=== PATIENT | male | born 1985 | race Caucasian/White ===

== ENCOUNTER 2016-08-03 17:02 | Emergency (ER) | payer SELFPAY ==
[~2016-08-03] VITALS: Ht 180.3 cm; Wt 99.8 kg
[2016-08-03 18:14] VITALS: BP 135/76
[2016-08-03 18:56] LABS: Basophils # (auto) 0.1 uL; Basophils % (auto) 0.4 % (0.0-2.0); Eosinophils # (auto) 0.2 uL; Eosinophils % (auto) 1.7 % (0.0-7.0); Lymphocytes # (auto) 3.4 uL; Lymphocytes % (auto) 26.8 % (10.0-50.0); Mean Corpuscular Hgb Conc. 31.9 g/dL (32.0-36.0); Mean Corpuscular Volume 90.8 fL (80.0-100.0); Mean Platelet Volume 8.6 fL (7.4-10.4); Monocytes # (auto) 0.7 uL; Monocytes % (auto) 5.7 % (0.0-12.0); Neutrophils # (auto) 8.3 uL; Neutrophils % (auto) 65.4 % (37.0-80.0); Platelet Count (auto) 321 10^3/uL (140-450); Red Cell Distribution Width 13.8 % (11.6-16.0); White Blood Cell 12.7 10^3/uL (4.4-10.8)
[2016-08-03 19:11] LABS: Albumin 3.6 g/dL (3.4-5.0); Anion Gap 9 (5-15); Aspartate Aminotransferase 60 U/L (15-37); BUN/Creatinine Ratio 8.8; Blood Urea Nitrogen 8 mg/dL (7-18); Calcium 8.3 mg/dL (8.5-10.1); Carbon Dioxide 25 mmol/L (21-32); Chloride 106 mmol/L (98-107); GFR African American 127 mL/min; GFR Non-African American 105 mL/min; Glucose 84 mg/dL (74-106); Salicylate < 1.7 mg/dL (2.8-20.0); Sodium 140 mmol/L (136-145)
[2016-08-03 19:20] LABS: Alkaline Phosphatase 98 U/L (45-117); Bilirubin, Total 0.3 mg/dL (0.2-1.0); Total Protein 7.5 g/dL (6.4-8.2)
[2016-08-03 19:26] LABS: Acetaminophen < 2.0 ug/mL (10-30)
[2016-08-03 20:56] LABS: Urine Bilirubin Negative (Negative); Urine Blood Negative /uL (Negative); Urine Color Yellow (Yellow); Urine Glucose Normal (Normal); Urine Hyaline Cast FEW /lpf (0 - 2); Urine Ketone Negative (Negative); Urine Mucus FEW (None Seen); Urine Nitrite Negative (Negative); Urine RBC <1 /hpf (0 - 3); Urine Squamous Epithelial Cell FEW /hpf (<5); Urine Urobilinogen Normal (Negative); Urine pH 6.5 (5.0-8.0)
== END 2016-08-03 21:06 | disposition home or self-care (01) ==
LOC: ER 17:08
DX: R51 Headache (principal); T43.295A Adverse effect of other antidepressants, initial encounter; Y92.89 Other specified places as the place of occurrence of the external cause; F41.9 Anxiety disorder, unspecified; F31.9 Bipolar disorder, unspecified
CPT/HCPCS: 36415; 80053; 80320; 80329; 81001; 85025; 85049; 99284; G0434